=== PATIENT | male | born 1980 | race Caucasian/White ===

== ENCOUNTER 2018-05-30 00:35 | Emergency (ER) | payer SELFPAY ==
[~2018-05-30] VITALS: Ht 180.3 cm; Wt 86.4 kg
[2018-05-30 00:41] VITALS: BP 129/79
[2018-05-30] MEDS ORDERED: cephalexin 500mg capsule PO ONE (01:15)
[2018-05-30] MEDS ORDERED: CEPH250T PO (01:16)
== END 2018-05-30 01:31 ==
LOC: ER 00:36
DX: T81.30XA Disruption of wound, unspecified, initial encounter (principal); F10.129 Alcohol abuse with intoxication, unspecified; F17.200 Nicotine dependence, unspecified, uncomplicated; Y90.9 Presence of alcohol in blood, level not specified; Y92.89 Other specified places as the place of occurrence of the external cause
CPT/HCPCS: 99283